=== PATIENT | male | born 1975 | race Caucasian/White ===

== ENCOUNTER 2018-07-10 07:22 | Observation (INO) | payer OTHER ==
[2018-07-10] MEDS ORDERED: BABY ASPIRIN 81 MG CHEW PO ONE (07:50)
--- NOTE | 2018-07-10 07:58 | ERPHSYRPT ---
- History of Present Illness Time Seen by Provider: 07/10/18 07:44 Source: patient Exam Limitations: no limitations Patient Subjective Stated Complaint: feels like heart fluttering for approx 30 minutes [employer]GER was walking up a hill and into a tree stand to [place].. was upset due to a situation [employer]GER Triage Nursing Assessment: alert and in no distress states feel like heart fluttering. denies CP staets nauseated and feels bloated. did not eat this AM. has a hx of heart palpatations. Physician History: 42-year-old morbidly obese white male with history of arrhythmia in the high blood pressure arrives with complaint of feeling of fluttering in his chest states he feels bloated states he has nausea no shortness of breath symptoms for 30 minutes, Patient states that he apparently went to go hunting found somebody in the spot he went somewhere else to climb a tree stand and began having the above symptoms , he denies chest pain he is not short of breath, Patient has had a history of dysrhythmias in the past, He does state that he contacted his family physician he states he took 2-1/2 25 mg atenolol tablets he hasn't taken one 81 mg aspirin this morning. Past medical history includes arrhythmia, high blood pressure. Past surgical history includes cardiac catheter. Social history patient denies tobacco alcohol or illicit drug use she denies any caffeine intake Timing/Duration: today (30 minutes prior to arrival) Severity: moderate Modifying Factors: Improves With: other (patient took one 81 mg of aspirin prior to arrival, 2-1/2 25 mg atenolol's atenolol) Associated Symptoms: nausea, other (palpitations and feels bloated), No vomiting , No abdominal pain, No shortness of breath, No heartburn, No diaphoresis, No cough, No chills, No chest pain, No fever, No headaches, No loss of appetite, No malaise, No rash, No syncope, No seizure, No weakness Allergies/Adverse Reactions: No Known Drug Allergies Allergy (Unverified 07/10/18 07:54) Home Medications: Atenolol 25 mg PO BID 08/27/15 [History] Lorazepam 0.5 mg [Ativan 0.5 MG] 0.5 mg PO BID 08/27/15 [History] Verapamil HCl [Verapamil ER] 180 mg PO HS 08/27/15 [History] Hx Tetanus, Diphtheria Vaccination/Date Given: Yes Hx Influenza Vaccination/Date Given: No Hx Pneumococcal Vaccination/Date Given: No - Review of Systems Constitutional: No No Symptoms, No Fever, No Chills Eyes: No Symptoms Ears, Nose, & Throat: No Symptoms Respiratory: No Cough, No Dyspnea Cardiac: Palpitations, No Chest Pain, No Edema, No Syncope, No Orthopnea, No PND Abdominal/Gastrointestinal: Nausea, Other (feel bloated), No Abdominal Pain, No Vomiting, No Diarrhea, No Constipation, No Hematemesis, No Hematochezia, No Melena, No Dysphagia, No Appetite Changes Genitourinary Symptoms: No Dysuria Musculoskeletal: No Back Pain, No Neck Pain Skin: No Rash Neurological: No Dizziness, No Focal Weakness, No Sensory Changes Psychological: No Symptoms Endocrine: No Symptoms All Other Systems: Reviewed and Negative - Past Medical History Pertinent Past Medical History: Yes Cardiac History: Arrhythmia, Hypertension - Past Surgical History Past Surgical History: Yes Cardiac: Cardiac Catheterization - Social History Smoking Status: Never smoker Exposure to second hand smoke: No Drug Use: none Patient Lives Alone: No - Nursing Vital Signs Nursing Vital Signs: Initial Vital Signs Temperature 98 F 07/10/18 07:45 Pulse Rate 80 07/10/18 07:45 Respiratory Rate 18 07/10/18 07:45 Blood Pressure 146/91 07/10/18 07:45 O2 Sat by Pulse Oximetry 100 07/10/18 07:45 Pain Scale Pain Intensity 0 - Physical Exam General Appearance: obese, other (well-developed obese white male alert oriented 3 does not appear to be in acute distess), No mild distress, No moderate distress, No severe distress, No alert, No anxiety, No lethargy, No cachetic Eye Exam: PERRL/EOMI, eyes nml inspection Ears, Nose, Throat Exam: normal ENT inspection, TMs normal, pharynx normal, moist mucous membranes Neck Exam: normal inspection, non-tender, supple, full range of motion Respiratory Exam: normal breath sounds, lungs clear, No respiratory distress Cardiovascular Exam: normal heart sounds, normal peripheral pulses, irregular, No murmur (I think these him) Gastrointestinal/Abdomen Exam: soft, normal bowel sounds, No tenderness, No mass Back Exam: normal inspection, normal range of motion, No CVA tenderness, No vertebral tenderness Extremity Exam: normal inspection, normal range of motion, pelvis stable Neurologic Exam: alert, oriented x 3, cooperative, building performance consultant II-XII nml as tested, normal mood/affect, nml cerebellar function, nml station & gait, sensation nml, No motor deficits Skin Exam: normal color, warm, dry, No rash Lymphatic Exam: No adenopathy SpO2 Interpretation: normal (1put him00%) SpO2: 100 Oxygen Delivery: Room Air - Course Nursing assessment & vital signs reviewed: Yes EKG Interpreted by Me: RATE (94 bpm), A-fib, NORMAL AXIS, Other (EKG: Atrial fibrillation, 94 bpm, normal axis, no acute ST or T wavechanges, compared to August 27, 2015) - Radiology Exams Chest X-ray Interpretation: Discussed w/ radiologist (non acute chest x-ray) Ordered Tests: Active Orders 24 hr Category Date Time Status Urban Designer STAT Care 07/10/18 07:50 Active EKG-ER Only STAT Care 07/10/18 07:50 Active IV Insertion STAT Care 07/10/18 07:50 Active Pulse Oximetry (ED) STAT Care 07/10/18 07:50 Active CHEST 1 VIEW (PORTABLE) Stat Exams 07/10/18 07:51 Completed AMYLASE Stat Lab 07/10/18 08:00 Completed CBC W DIFF Stat Lab 07/10/18 08:00 Completed CMP Stat Lab 07/10/18 08:00 Completed D-DIMER QUANTITATION Stat Lab 07/10/18 08:00 Completed LIPASE Stat Lab 07/10/18 08:00 Completed Manual Differential NC Stat Lab 07/10/18 08:00 Completed TROPONIN Q3H Lab 07/10/18 08:00 Completed TROPONIN Q3H Lab 07/10/18 11:00 Ordered TROPONIN Q3H Lab 07/10/18 14:00 Ordered TROPONIN Q3H Lab 07/10/18 17:00 Ordered TROPONIN Q3H Lab 07/10/18 20:00 Ordered Transfer Order Routine Transfer 07/10/18 Ordered Medication Summary Discontinued Medications Generic Name Dose Route Start Last Admin Trade Name Freq PRN Reason Stop Dose Admin Aspirin 243 mg 07/10/18 07:50 07/10/18 07:57 Baby Aspirin 81 Mg Chew PO 07/10/18 07:51 243 mg STAT ONE Administration Lab/Rad Data: Laboratory Result Diagrams 07/10/18 08:00 07/10/18 08:00 Laboratory Results 07/10/18 07/10/18 07/10/18 Range/Units 08:00 08:00 08:00 WBC (4.0-10.5) K/mm3 RBC (4.1-5.6) M/mm3 Hgb (12.5-18.0) gm/dl Hct (42-50) % MCV (78-100) fl MCH (26-32) pg MCHC (32-36) g/dl RDW (11.5-14.0) % Plt Count (150-450) K/mm3 MPV (6-9.5) fl D-Dimer 229 (215-500) ng/mL Sodium 139 (137-145) mmol/L Potassium 4.4 (3.5-5.1) mmol/L Chloride 103 (98-107) mmol/L Carbon Dioxide 23 (22-30) mmol/L Anion Gap 17.9 H (5-15) MEQ/L BUN 20 (9-20) mg/dL Creatinine 0.85 (0.66-1.25) mg/dL Estimated GFR > 60.0 ML/MIN Glucose 201 H (74-106) mg/dL Calcium 9.5 (8.4-10.2) mg/dL Total Bilirubin 0.40 (0.2-1.3) mg/dL AST 26 (17-59) U/L ALT 31 (0-50) U/L Alkaline Phosphatase 95 (38-126) U/L Troponin I < 0.012 (0.000-0.034) ng/mL Serum Total Protein 7.7 (6.3-8.2) g/dL Albumin 4.6 (3.5-5.0) g/dL Amylase 41 (30-110) U/L Lipase 84 (23-300) U/L 07/10/18 Range/Units 08:00 WBC 9.1 (4.0-10.5) K/mm3 RBC 5.35 (4.1-5.6) M/mm3 Hgb 15.3 (12.5-18.0) gm/dl Hct 44.9 (42-50) % MCV 83.9 (78-100) fl MCH 28.6 (26-32) pg MCHC 34.1 (32-36) g/dl RDW 14.2 H (11.5-14.0) % Plt Count 308 (150-450) K/mm3 MPV 9.4 (6-9.5) fl D-Dimer (215-500) ng/mL Sodium (137-145) mmol/L Potassium (3.5-5.1) mmol/L Chloride (98-107) mmol/L Carbon Dioxide (22-30) mmol/L Anion Gap (5-15) MEQ/L BUN (9-20) mg/dL Creatinine (0.66-1.25) mg/dL Estimated GFR ML/MIN Glucose (74-106) mg/dL Calcium (8.4-10.2) mg/dL Total Bilirubin (0.2-1.3) mg/dL AST (17-59) U/L ALT (0-50) U/L Alkaline Phosphatase (38-126) U/L Troponin I (0.000-0.034) ng/mL Serum Total Protein (6.3-8.2) g/dL Albumin (3.5-5.0) g/dL Amylase (30-110) U/L Lipase (23-300) U/L - Progress Progress: improved Progress Note: 07/10/18 08:00 42-year-old white male morbidly obese with history of arrhythmia in the past arrives with complaint of onset of palpitations nausea and feeling bloated since approximately 30 minutes prior to arrival. Patient apparently had found somebody in his hunting spot. He went to a different location climbed tree stand and began having the above symptoms. He apparently contacted his family physician. Who told him to take an extra atenolol he states he took 2-1/2 25 mg atenolol tablets prior to arrival also aspirin 81 mg orally. Also had taken lorazepam 2 of his 0.5 mg tablets prior to arrival. Patient does not appear to be in acute distress he does have what appears to be atrial fibrillation on the monitor controlled rate normal axis XCIV bpm no acute ST or T wave changes patient did have a similar appearing EKG August 27, 2015. Will go ahead and give patient aspirin to 43 mg order CBC CMP troponin amylase lipase chest x-ray EKG. . 07/10/18 09:35 Patient's vitals are stable atrial fibrillation on the monitor/ No acute EKG changes. Chest x-ray unremarkable CBC CMP troponin within normal limits D dimer within normal limits. Call has been placed to Dr. alaotrre who is diamond mounter for Dr. Rivera awaiting callback. 07/10/18 09:50 I discussed the patient's case with Dr. alatorre The patient is at the patient and his family are requesting to stay for a rule out. Will go ahead and place patient on observation obtain serial cardiac enzymes. Patient was given 243 mg aspirin here in the emergency room. - Departure Time of Disposition: 09:51 Departure Disposition: Observation Clinical Impression: Palpitations, Nausea Atrial fibrillation Qualifiers: Atrial fibrillation type: unspecified Qualified Code(s): I48.91 - Unspecified atrial fibrillation Condition: Fair Critical Care Time: No Referrals: NICO RIVERA [Primary Care Provider] -
[2018-07-10 08:04] LABS: Hematocrit 44.9 % (42-50); Hemoglobin 15.3 gm/dl (12.5-18.0); Mean Cell Volume 83.9 fl (78-100); Mean Corpuscular Hemoglobin 28.6 pg (26-32); Mean Corpuscular Hgb Concent. 34.1 g/dl (32-36); Mean Platelet Volume 9.4 fl (6-9.5); Platelet Count 308 K/mm3 (150-450); Red Blood Count 5.35 M/mm3 (4.1-5.6); Red Cell Distribution Width 14.2 % (11.5-14.0); White Blood Count 9.1 K/mm3 (4.0-10.5)
[2018-07-10 08:33] LABS: ALBUMIN 4.6 g/dL (3.5-5.0); ALKALINE PHOSPHATASE 95 U/L (38-126); AMYLASE 41 U/L (30-110); ANION GAP 17.9 MEQ/L (5-15); BLOOD UREA NITROGEN 20 mg/dL (9-20); CHLORIDE 103 mmol/L (98-107); Calcium 9.5 mg/dL (8.4-10.2); Carbon Dioxide 23 mmol/L (22-30); Creatinine 1 0.85 mg/dL (0.66-1.25); Glucose 201 mg/dL (74-106); LIPASE 84 U/L (23-300); Potassium 4.4 mmol/L (3.5-5.1); SGOT/AST 26 U/L (17-59); SGPT/ALT 31 U/L (0-50); SODIUM 139 mmol/L (137-145); Total Protein 7.7 g/dL (6.3-8.2)
--- NOTE | 2018-07-10 09:20 | XRAY ---
Indication: Palpitations. Comparison: August 27, 2015. Portable chest remains clear. Heart is not enlarged for AP portable technique. Bony thorax intact. No new/acute findings. Impression: Nonacute chest.
[2018-07-10] MEDS ORDERED: Zofran 4 MG/2 ML VIAL IV PRN (10:14)
[2018-07-10] MEDS ORDERED: Sodium Chloride 0.9% 10 ML FLUSH Syringe IV PRN (10:40)
[2018-07-10 11:45] LABS: Eosinophil 2 % (0.00-3.0); Lymphocytes 32 % (24-44); Monocyte 6 % (0.0-12.0); Neutrophils 60 % (36.-66.); Platelet Estimate NORMAL (NORMAL); Total Cells Counted 100; Toxic Granulation 1+
[2018-07-10] MEDS ORDERED: TYLENOL 325 MG PO PRN (11:58)
[2018-07-10] MEDS ORDERED: ENOXAPARIN SODIUM SQ SCH (13:00)
[2018-07-10] MEDS: Sodium Chloride 0.9% 10 ML FLUSH Syringe IV SCH ×2 (13:56→21:19)
[2018-07-10] MEDS: TENORMIN 50 MG PO SCH (21:10)
[2018-07-10] MEDS: Ativan 0.5 MG PO SCH (21:10)
[2018-07-10] MEDS ORDERED: VERAPAMIL HCL 180 MG PO SCH (22:00)
[2018-07-10] MEDS ORDERED: ISOPTIN SR 180MG PO SCH (22:00)
[2018-07-10] MEDS ORDERED: TENORMIN 50 MG PO SCH (22:00)
[2018-07-11] MEDS: Sodium Chloride 0.9% 10 ML FLUSH Syringe IV SCH (05:41)
[2018-07-11 06:15] LABS: ALBUMIN 4.2 g/dL (3.5-5.0); ALKALINE PHOSPHATASE 85 U/L (38-126); BLOOD UREA NITROGEN 17 mg/dL (9-20); CHLORIDE 101 mmol/L (98-107); Calcium 9.1 mg/dL (8.4-10.2); Carbon Dioxide 25 mmol/L (22-30); Creatinine 1 0.81 mg/dL (0.66-1.25); Glucose 151 mg/dL (74-106); Potassium 4.1 mmol/L (3.5-5.1); SGOT/AST 23 U/L (17-59); SGPT/ALT 31 U/L (0-50); SODIUM 137 mmol/L (137-145); Total Protein 7.4 g/dL (6.3-8.2)
[2018-07-11 06:24] LABS: Risk Ratio 7.3
[2018-07-11 06:33] LABS: Hematocrit 46.1 % (42-50); Hemoglobin 15.5 gm/dl (12.5-18.0); Mean Cell Volume 84.1 fl (78-100); Mean Corpuscular Hemoglobin 28.3 pg (26-32); Mean Corpuscular Hgb Concent. 33.6 g/dl (32-36); Mean Platelet Volume 9.5 fl (6-9.5); Platelet Count 324 K/mm3 (150-450); Red Blood Count 5.48 M/mm3 (4.1-5.6); Red Cell Distribution Width 14.4 % (11.5-14.0); White Blood Count 9.2 K/mm3 (4.0-10.5)
[2018-07-11 08:22] VITALS: O2SAT 95
[2018-07-11 08:32] LABS: Eosinophil 1 % (0.00-3.0); Lymphocytes 29 % (24-44); Monocyte 12 % (0.0-12.0); Neutrophils 58 % (36.-66.); Total Cells Counted 100
[2018-07-11 08:33] LABS: Platelet Estimate NORMAL (NORMAL)
[2018-07-11] MEDS: TENORMIN 50 MG PO SCH (09:37)
[2018-07-11] MEDS: Ativan 0.5 MG PO SCH (09:42)
[2018-07-11] MEDS ORDERED: BABY ASPIRIN 81 MG CHEW PO SCH (10:00)
[2018-07-11] MEDS ORDERED: ECOTRIN 81 MG PO SCH (10:00)
--- NOTE | 2018-07-11 11:19 | PCM.DCORD ---
- Discharge Discharge Date: 07/11/18 Disposition: Home, Self-Care Condition: Good Prescriptions: New Apixaban [Eliquis] 5 mg PO BID #60 tablet Metformin HCl [Metformin HCl ER] 500 mg PO DAILY #30 tab.er.24 Continue Verapamil HCl [Verapamil ER] 180 mg PO HS Atenolol 25 mg PO BID Lorazepam 0.5 mg [Ativan 0.5 MG] 0.5 mg PO BID Discontinued Aspirin 81 gm Chew [Baby Aspirin 81 mg Chew] 81 mg PO DAILY Additional Instructions: Avoid sugary drinks. Eat a low fat diet. Do not climb. Do not take NSAIDS ( no ibuprofen, advil, aleve, or motrin). You may take tylenol if you have pain. Go to ER if you have blood in your stool or dark black stools. See you doctor if you have easy bruising. A sleep study was ordered and scheduled. Follow up with: NICO PIERCE [Primary Care Provider] - 1 Week CHRIS HIGGINS [ACTIVE STAFF] - 1 Week
[2018-07-11 12:38] VITALS: BP 139/89; PULSE 82
--- NOTE | 2018-07-12 08:20 | HP ---
HISTORY OF PRESENT ILLNESS: This is a 42 year-old patient of Dr. Parrish who presented to the emergency department after having palpitations when he climbed into his tree stand to go deer hunting this morning. He denies any chest pain with that. He said he felt hot but he had also walked a long ways with some thick clothes on. He states that he has a history of panic and anxiety and that seems to make things worse, too. He reports a history eleven years ago of seeing a rhythm specialist and having a heart cath at that time, too. He was seen in at Dr. Kong in [place] and had MRI and a stress test done at that time he reports. He reports he has never been told he had atrial fibrillation in the past although he had an EKG here in our emergency room from August 2015 that showed atrial fibrillation. I reviewed the patient's clinic chart. He had a Holter monitor in 2013 that I did not see any atrial fibrillation on. The patient has been on Atenolol and Verapamil. He states he can feel when his heart goes into a funny rhythm states he feels like it is there right now. He has never had an echocardiogram that he can recall. He does not remember ever talking to anyone about anticoagulation to prevent strokes in the past. His father of a myocardial infarction when he was 59 years of age but they also report that he had multiple other health problems as well. REVIEW OF SYSTEMS: The patient denies any cough or fever. No abdominal pain. He reports some left ankle pain from hurting his ankle on a golf cart and some swelling in that ankle. No rashes. Otherwise review of systems is negative. PAST MEDICAL HISTORY: Anxiety. History of arrhythmia. It appears the patient had atrial fibrillation back in 2015 although the patient himself may not have been aware of this diagnosis at that time. Hypertension. PAST SURGICAL HISTORY: None. MEDICATIONS: Aspirin 81 mg p.o. daily, Atenolol 25 mg p.o. b.i.d., lorazepam 0.5 mg b.i.d., verapamil 180 mg p.o. q.h.s. ALLERGIES: NKDA. SOCIAL HISTORY: He denies any tobacco use. He is and lives with his . FAMILY HISTORY: His father had myocardial infarction at 59. Maternal grandmother had atrial fibrillation and coronary artery disease. His mother had asthma and history of cancer. She is living and is 67 years old. PHYSICAL EXAMINATION: VITAL SIGNS: Temperature current 97.5F, temperature max 98F, heart rate 65 to 88, respiratory rate 12 to 18, blood pressure 125 to 146 over 58 to 91. Oxygen saturation 94 to 100% on room air. GENERAL: The patient is a morbidly obese man lying in bed in no acute distress. He is pleasant and talkative. and mother are at the bedside. CVS: His heart is irregularly irregular with a normal rate. No murmurs, gallops or rubs are appreciated. CHEST: Clear to auscultation bilaterally. ABDOMEN: Obese, soft, nontender, nondistended with normal bowel sounds. EXTREMITIES: No clubbing, cyanosis or edema. SKIN: Warm, dry and intact. LABORATORY DATA AND TESTS: CBC within normal limits. CMP revealed blood sugar of 201. The patient reports he was fasting. Hemoglobin A1C 6.56. Troponin was negative. Amylase and lipase were negative. TSH is ordered. Chest x-ray was read as a nonacute chest. EKG with heart rate 94, atrial fibrillation, no ST-T wave changes. ASSESSMENT AND PLAN: 1) ATRIAL FIBRILLATION: The patient was not aware of this diagnoses. The patient does not carry a diagnosis of diabetes yet so his CHADS2-VASc score is currently 1, which will give him a stroke risk of 0.6% per year. Will ask Dr. Freire to see the patient. Will try to get an echocardiogram Thursday as well, will check a fasting lipid profile in the morning. Will continue with telemetry and close monitoring. Will continue with his atenolol and Verapamil. 2) PALPITATIONS: Palpitations may be due to rapid ventricular response to the atrial fibrillation that he may have experienced when he was exerting himself to walk to his tree stand and climb up in the tree stand. 3) HYPERGLYCEMIA: His hemoglobin A1C was elevated as well as a fasting blood sugar this morning. Since he is not [id number] from hyperglycemia will need to repeat his fasting blood sugar tomorrow morning to see if he qualifies for diagnosis of diabetes. If he does I will make his CHADS2-VASc score a 2 and will definitely need to talk to him about anticoagulation. 4) HYPERTENSION: Will continue his home medications. 5) ANXIETY: Will continue with his home medications. I did discuss with him possibly starting something like Lexapro to help control his anxiety. 6) MORBID OBESITY.
--- NOTE | 2018-07-12 12:58 | DS ---
DISCHARGE DIAGNOSES: 1) ATRIAL FIBRILLATION. 2) DIABETES MELLITUS TYPE 2. 3) HYPERLIPIDEMIA. 4) MORBID OBESITY. DISCHARGE PHYSICAL EXAMINATION: VITALS: Temperature current 97.6F, temperature max 97.9F, heart rate 66 to 71, respiratory rate 17 to 20, blood pressure 118 to 120 over 58 to 61, weight 187.6 kg. Oxygen saturation 94 to 95% on room air. GENERAL: The patient is sitting up, a pleasant talkative man in no acute distress. CVS: He has a regular rate and rhythm. No murmurs, gallops or rubs are appreciated. CHEST: Clear to auscultation bilaterally. No crackles or wheezes. ABDOMEN: Soft, nontender, nondistended with normal bowel sounds. EXTREMITIES: No clubbing, cyanosis or edema. SKIN: Warm, dry and intact. LAB DATA AND TESTS: Hemoglobin A1C on the day of admission was 6.56. Fasting glucose 201. Repeat fasting glucose today 151. Triglycerides 418. Cholesterol 227. LDL 139, HDL 31. TSH 2.8. EKG revealed atrial fibrillation with a normal rate. ASSESSMENT AND PLAN: 1) ATRIAL FIBRILLATION: He was ruled out for an acute myocardial infarction. His TSH was normal. He plans to follow up with Dr. Freire and have an echocardiogram with him. This case was discussed with Dr. Ottoniel Osullivan who was covering for Dr. Freire. I personally discussed with Dr. Osullivan whether or not to recommend anticoagulation. His [id number] risk stratification score was a 2, giving him a 2.2% per year stroke rate, this was discussed with the patient and he was agreeable to anticoagulation. We discussed the risk of major bleeding being less or equal to 3%, nonmajor 2 to 4% and that he would need to go to the emergency room if he saw blood in his stool or dark black stool or see his doctor if he has easy bleeding. I would recommend not climbing at all to prevent falls that could result in bleeds around his head. The patient voiced understanding his score came from his diagnosis of hypertension and diabetes. I wrote a prescription that was sent in for Eliquis 5 mg p.o. b.i.d., this was called to [facility] as his regular pharmacy was closed and they reported that he would not have any co-pay for this. 2) DIABETES MELLITUS TYPE 2: This is a new diagnosis for this patient but he meets the criteria with the fasting blood sugar of 201 on admission and 151 the second day. His hemoglobin A1C was also elevated at 6.56 giving an average blood glucose of 122 over the past three months. We discussed starting Metformin Extended Release 500 mg p.o. daily this was sent to his regular pharmacy, [facility]. They discussed side effects of maybe some upset stomach or diarrhea. His primary care doctor will need to follow up with his diabetes. 3) HYPERLIPIDEMIA: I have reviewed his numbers with him and the patient wants to try diet changes first. I discussed that with diabetes and heart problems we recommended that the LDL be below 100. 4) MORBID OBESITY: The patient stated that he wanted to try to lose weight. 5) HYPERTENSION: His blood pressure is currently controlled. He is on a couple of medicines that would lower his blood pressure as well as control his heart rate for atrial fibrillation. DISCHARGE MEDICATIONS: Please see the discharge order. FOLLOW UP: He is to follow up with Dr. Freire and Dr. Rivera. DISPOSITION: The patient was discharged to home in good condition.
== END 2018-07-11 12:05 | disposition home or self-care (01) ==
LOC: ED 07:22 → MED SURG 10:10
PROVIDERS: ADMIT Internal Medicine; ATTEND Family Medicine
DX: I48.91 Unspecified atrial fibrillation (principal); E11.9 Type 2 diabetes mellitus without complications; E78.5 Hyperlipidemia, unspecified; E66.01 Morbid (severe) obesity due to excess calories
CPT/HCPCS: 36000; 36415; 71045; 80053; 80061; 82150; 83036; 83690; 83721; 83735; 84443; 84484; 85025; 85379; 93005; 93041; 93268; 94762; 99285; G0378; J1650; A9270-GY

== ENCOUNTER 2024-02-19 05:51 | Day surgery (SDC) | payer OTHER ==
[2024-02-19 06:17] VITALS: RESP 16
[2024-02-19] MEDS ORDERED: Lactated Ringers 1,000 ML IV ONE ×2 (06:20→06:56)
[2024-02-19] MEDS: Lactated Ringers 1,000 ML IV SCH (07:00)
[2024-02-19] MEDS ORDERED: Versed 2 MG/2 ML Injection ONE (07:00)
[2024-02-19] MEDS ORDERED: DIPRIVAN 200 MG/20 ML IV ONE ×3 (07:00→07:27)
[2024-02-19] MEDS ORDERED: Xylocaine-Mpf 2% 5 Ml Vial ONE (07:00)
[2024-02-19] MEDS ORDERED: SUBLIMAZE 100 MCG/2 ML ONE (07:16)
[2024-02-19 07:59] VITALS: TEMP 97.5
[2024-02-19 08:10] VITALS: BP 126/87; PULSE 66; O2SAT 96
--- NOTE | 2024-02-20 10:17 | OP ---
SURGERY DATE/TIME: 02/19/2024 0700 - 0730 PREOPERATIVE DIAGNOSIS: Screening exam. POSTOPERATIVE DIAGNOSIS: Small polyp in the transverse colon and approximately 2.0 cm pedunculated polyp in the sigmoid colon. PROCEDURE: Colonoscopy with cold forceps biopsy of the transverse colon polyp and hot snare polypectomy of the sigmoid polyp. SURGEON: Iain Rivera MD ANESTHESIA: Medication given by the Anesthesia Department. INDICATIONS: The patient is a 48-year-old, white male patient presenting now for screening colonoscopy. The patient was apprised of the risks of the procedure including risk of perforation, phlebitis, untoward reaction to medication, bleeding, and missed lesions. The patient verbalized his understanding and desire to have procedure performed. DESCRIPTION OF PROCEDURE AND FINDINGS: The patient was given medication by the Anesthesia Department and continuous pulse oximetry, ECG monitoring and intermittent blood pressure monitoring during the examination. He was placed in the left lateral decubitus position. Digital rectal examination was performed and revealed normal anal sphincter tone, no masses, and a normal prostate. The flexible Olympus videocolonoscope was used to intubate the rectum. A view of the colon was developed sequentially to the cecum. Upon insertion, withdrawal it was noted a 0.75 cm polyp in the transverse colon that had the appearance of a hyperplastic polyp. This was biopsied using cold forceps biopsy in a couple passes. There was a larger polyp that was pedunculated measuring approximately 2.0 cm in diameter, which was removed using hot polypectomy snare, retrieved for pathologic evaluation. No other mucosal lesions were encountered. The scope was removed. The patient tolerated the procedure well and sent to outpatient recovery in good condition. The prep was noted to be fair. Large amounts of liquid stool was still present in the colon. We suctioned approximately 1 L of liquid stool out during the procedure.
== END 2024-02-19 08:20 | disposition left against medical advice (07) ==
LOC: SDC 05:51
PROVIDERS: ATTEND Family Medicine
DX: Z12.11 Encounter for screening for malignant neoplasm of colon (principal); E11.9 Type 2 diabetes mellitus without complications; D12.5 Benign neoplasm of sigmoid colon
CPT/HCPCS: 82947; J2250; J2704; J3010